=== PATIENT | female | born 1970 | race Caucasian/White ===

== ENCOUNTER 2016-10-05 09:26 | Emergency (ER) | payer OTHER ==
[~2016-10-05] VITALS: Ht 160 cm; Wt 72.6 kg
[~2016-10-05 09:26] MED LIST: CLINDAMYCIN HC300 MG PO; COL100 PO; LEVAQUIN500 MG PO; MOTRIN800 MG PO; NOR10T PO
[2016-10-05 12:40] VITALS: BP 124/68
== END 2016-10-05 12:40 | disposition home or self-care (01) ==
LOC: ED 09:26
DX: S30.0XXA Contusion of lower back and pelvis, initial encounter (principal); S80.01XA Contusion of right knee, initial encounter; W18.39XA Other fall on same level, initial encounter; Y93.89 Activity, other specified; Y92.89 Other specified places as the place of occurrence of the external cause; Y99.8 Other external cause status